=== PATIENT | female | born 1950 | race Caucasian/White ===

== ENCOUNTER 2017-03-25 01:40 | Observation (INO) | payer OTHER ==
[~2017-03-25] VITALS: Ht 162.6 cm; Wt 88.0 kg
[2017-03-25] MEDS ORDERED: IPRATROPIUM BROM 0.5 MG/2.5ML INH SOL NEB ONE (03:00)
[2017-03-25] MEDS ORDERED: ALBUTEROL SULF 2.5 MG/0.5ML(0.5%) NEB SOLN NEB ONE (03:00)
[2017-03-25 03:23] LABS: Basophils # (auto) 0 uL; Eosinophils # (auto) 0 uL; Lymphocytes # (auto) 0.7 uL; Lymphocytes % (auto) 17.2 % (10.0-50.0); Monocytes # (auto) 0.5 uL; White Blood Cell 3.9 10^3/uL (4.4-10.8)
[2017-03-25 03:25] LABS: Basophils % (auto) 0.9 % (0.0-2.0); Eosinophils % (auto) 0.2 % (0.0-7.0); Hematocrit 29.3 % (36.0-46.0); Hemoglobin 9.9 g/dL (12.2-16.2); Mean Corpuscular Hemoglobin 32.3 pg (28.0-32.0); Mean Corpuscular Hgb Conc. 33.6 g/dL (32.0-36.0); Mean Corpuscular Volume 96.1 fL (80.0-100.0); Monocytes % (auto) 13.4 % (0.0-12.0); Neutrophils # (auto) 2.7 uL; Neutrophils % (auto) 68.3 % (37.0-80.0); Nucleated Red Blood Cells % 0.1 %; Red Blood Cells 3.05 10^6/uL (4.0-5.20)
[2017-03-25 03:26] LABS: Urine Bacteria FEW /hpf (None Seen); Urine Blood 1+ /uL (Negative); Urine Mucus FEW (None Seen); Urine Specific Gravity 1.014 (1.001-1.035); Urine WBC 76 /hpf (0 - 5)
[2017-03-25 03:28] LABS: Red Cell Distribution Width 20.6 % (11.8-14.3)
[2017-03-25 03:37] LABS: INR 1.56 (0.9-1.15); Partial Thromboplastin Time 35.5 sec (22.64-33.71); Prothrombin Time 17.1 sec (9.37-12.3)
[2017-03-25 03:40] LABS: Albumin 2.1 g/dL (3.4-5.0); BUN/Creatinine Ratio 9.8; Calcium 7.5 mg/dL (8.5-10.1); Magnesium 2.2 mg/dL (1.6-2.6)
[2017-03-25 03:43] LABS: Bilirubin, Total 4.6 mg/dL (0.2-1.0); Total Protein 5.6 g/dL (6.4-8.2)
[2017-03-25 03:46] LABS: Potassium 2.7 mmol/L (3.5-5.1)
[2017-03-25] MEDS ORDERED: FER325T PO (03:51)
[2017-03-25] MEDS ORDERED: ERGO1CAP23 PO (03:51)
[2017-03-25] MEDS ORDERED: EPOE20005 IJ (03:51)
[2017-03-25] MEDS ORDERED: SIMV10TA84 PO (03:51)
[2017-03-25 03:52] LABS: Platelet Count (auto) 65 10^3/uL (140-450)
[2017-03-25] MEDS ORDERED: POTASSIUM CHL 20 Meq TABLET PO ONE (04:00)
[2017-03-25] MEDS ORDERED: LACTULOSE 20Gm/30ML SOLN PO ONE ×2 (04:45→05:30)
[2017-03-25] MEDS ORDERED: LEVOFLOXACIN 500 MG TAB PO ONE ×2 (04:45→05:30)
[2017-03-25] MEDS ORDERED: ONDANSETRON HCL 4 MG/2 ML VIAL IV ONE (05:30)
[2017-03-25 08:51] VITALS: BP 107/54
== END 2017-03-25 09:12 | disposition short-term general hospital (02) | DRG 204 ==
LOC: EDBD 01:40 → ER 01:44 → OVERFLOW 03:00 → ER 09:12
PROVIDERS: ADMIT Emergency Medicine; ATTEND Emergency Medicine
DX: R06.02 Shortness of breath (principal); A41.9 Sepsis, unspecified organism; N17.9 Acute kidney failure, unspecified; I50.9 Heart failure, unspecified; K50.90 Crohn's disease, unspecified, without complications; I13.0 Hypertensive heart and chronic kidney disease with heart failure and stage 1 through stage 4 chronic kidney disease, or unspecified chronic kidney disease; E11.22 Type 2 diabetes mellitus with diabetic chronic kidney disease; E83.51 Hypocalcemia; N39.0 Urinary tract infection, site not specified; N18.9 Chronic kidney disease, unspecified; R07.2 Precordial pain; E03.9 Hypothyroidism, unspecified; K72.90 Hepatic failure, unspecified without coma; E87.6 Hypokalemia; F17.200 Nicotine dependence, unspecified, uncomplicated; K74.60 Unspecified cirrhosis of liver; Z82.49 Family history of ischemic heart disease and other diseases of the circulatory system; Z83.3 Family history of diabetes mellitus
CPT/HCPCS: 36415; 71010; 80053; 81001; 82140; 82962; 83605; 83735; 83880; 84443; 84484; 85025; 85379; 85610; 85730; 87040; 93005; 94640; 96374; 99285; G0378; J2405

== ENCOUNTER 2017-05-20 11:24 | Inpatient (IN) | payer OTHER ==
[~2017-05-20] VITALS: Ht 162.6 cm; Wt 88.2 kg
[~2017-05-20 11:24] MED LIST: EPOE20005 IJ; ERGO1CAP23 PO; FER325T PO; SIMV10TA84 PO
[2017-05-20 12:18] LABS: Platelet Count (auto) 48 10^3/uL (140-450)
[2017-05-20 12:20] LABS: Hematocrit 25.3 % (36.0-46.0); Hemoglobin 8.2 g/dL (12.2-16.2); Mean Corpuscular Hemoglobin 33.5 pg (28.0-32.0); Mean Corpuscular Hgb Conc. 32.7 g/dL (32.0-36.0); Mean Corpuscular Volume 102.6 fL (80.0-100.0); Red Blood Cells 2.46 10^6/uL (4.0-5.20); Red Cell Distribution Width 18.8 % (11.8-14.3); White Blood Cell 2.4 10^3/uL (4.4-10.8)
[2017-05-20 12:31] LABS: Band Neutrophils % (manual) 0; Basophils % (manual) 0 (0.0-2.0); Blast Cells 0; Eosinophils % (manual) 0 (0-7); Metamyelocytes % 0; Myelocytes % 0; Promyelocytes % 0; Reactive Lymphocytes 0
[2017-05-20] MEDS ORDERED: LORazepam 2MG/ML-1ML VIAL ONE (12:40)
[2017-05-20 12:43] LABS: Alanine Aminotransferase 27 U/L (13-56); Albumin 2.8 g/dL (3.4-5.0); Anion Gap 10 (5-15); Aspartate Aminotransferase 36 U/L (15-37); BUN/Creatinine Ratio 6.9; Blood Alcohol < 3.0 mg/dL (0-5); Blood Urea Nitrogen 45 mg/dL (7-18); Calcium 8.6 mg/dL (8.5-10.1); Carbon Dioxide 24 mmol/L (21-32); Chloride 108 mmol/L (98-107); GFR African American 8 mL/min; GFR Non-African American 7 mL/min; Glucose 98 mg/dL (74-106); Magnesium 2.7 mg/dL (1.6-2.6); Potassium 3.6 mmol/L (3.5-5.1); Sodium 142 mmol/L (136-145)
[2017-05-20] MEDS ORDERED: LORazepam 2MG/ML-1ML VIAL IV ONE (12:45)
[2017-05-20 12:49] LABS: Alkaline Phosphatase 115 U/L (45-117); Bilirubin, Total 3.1 mg/dL (0.2-1.0); Total Protein 5.7 g/dL (6.4-8.2)
[2017-05-20 12:52] LABS: Urine Bacteria FEW /hpf (None Seen); Urine Blood TRACE /uL (Negative); Urine Hyaline Cast FEW /lpf (0 - 2); Urine Specific Gravity 1.011 (1.001-1.035); Urine WBC 8 /hpf (0 - 5)
[2017-05-20 13:05] LABS: Alcohol, Urine < 3.0 mg/dL (0-5); Amphetamine Screen, Urine NEGATIVE (NEGATIVE); Barbiturate Scree,Urine NEGATIVE (NEGATIVE); Benzodiazephine Screen, Urine NEGATIVE (NEGATIVE); Cannabinoid Screen, Urine NEGATIVE (NEGATIVE); Cocaine Screen, Urine NEGATIVE (NEGATIVE); Opiate Scree,Urine NEGATIVE (NEGATIVE); Phencyclidine Screen, Urine NEGATIVE (NEGATIVE)
[2017-05-20 13:12] LABS: Lymphocytes % (manual) 18 (10.0-50.0); Monocytes % (manual) 12 (0-12)
[2017-05-20] MEDS ORDERED: SODIUM CHLORIDE 0.9% 3,000 ML IV ONE (14:00)
[2017-05-20] MEDS ORDERED: VANCOMYCIN PER PHARMACY 0 MG IV SCH (14:15)
[2017-05-20] MEDS ORDERED: DEXTROSE (50%) 50ML SYRG IV PRN (14:15)
[2017-05-20] MEDS ORDERED: cefTRIAXone 1GM/10ml IVPUSH 10 ML IV ONE (14:15)
[2017-05-20] MEDS ORDERED: PANTOPRAZOLE 40 MG/10 ML VIAL IV ONE (14:15)
[2017-05-20] MEDS ORDERED: NITROGLYCERIN 0.4 MG SL TAB SL PRN (14:15)
[2017-05-20] MEDS ORDERED: MORPHINE SULFATE 4 MG/ML SYR/VIAL IV PRN ×2 (14:15)
[2017-05-20] MEDS ORDERED: ONDANSETRON HCL 4 MG/2 ML VIAL IV PRN (14:15)
[2017-05-20] MEDS ORDERED: FAMOTIDINE (10MG/ML) 2ML VL IV ONE (14:15)
[2017-05-20] MEDS ORDERED: NOREPINEPHRINE 8 MG/250ML KIT 250 ML IV SCH (14:15)
[2017-05-20] MEDS: SODIUM CHLORIDE 0.9% 1,000 ML IV SCH (14:48)
[2017-05-20] MEDS ORDERED: VANCOMYCIN 1GM/250ML 250 ML IV ONE (15:00)
[2017-05-20 15:05] LABS: INR 1.37 (0.9-1.15)
[2017-05-20] MEDS: InsuLIN REG 1unit/0.01ml Soln (100units/ml) SC SCH (18:00)
[2017-05-20] MEDS: ACCU-CHEK COMFORT CURVE STRIP VI SCH (18:13)
[2017-05-20] MEDS: LACTULOSE 20Gm/30ML SOLN PR SCH (21:20)
[2017-05-21] MEDS: ACCU-CHEK COMFORT CURVE STRIP VI SCH ×4 (00:08→18:41)
[2017-05-21] MEDS: LACTULOSE 20Gm/30ML SOLN PR SCH ×4 (02:35→18:00)
[2017-05-21 06:10] LABS: Basophils # (auto) 0 uL; Eosinophils # (auto) 0 uL; Mean Corpuscular Hemoglobin 33.3 pg (28.0-32.0); Monocytes # (auto) 0.3 uL; Neutrophils # (auto) 1.8 uL; White Blood Cell 2.3 10^3/uL (4.4-10.8)
[2017-05-21 06:12] LABS: Basophils % (auto) 0.8 % (0.0-2.0); Hemoglobin 8.1 g/dL (12.2-16.2); Lymphocytes # (auto) 0.2 uL; Lymphocytes % (auto) 10.6 % (10.0-50.0); Mean Corpuscular Hgb Conc. 32.2 g/dL (32.0-36.0); Mean Corpuscular Volume 103.3 fL (80.0-100.0); Monocytes % (auto) 11.4 % (0.0-12.0); Neutrophils % (auto) 77.2 % (37.0-80.0); Nucleated Red Blood Cells % 0.4 %; Platelet Count (auto) 39 10^3/uL (140-450); Red Blood Cells 2.42 10^6/uL (4.0-5.20); Red Cell Distribution Width 18.7 % (11.8-14.3)
[2017-05-21 06:29] LABS: Albumin 2.5 g/dL (3.4-5.0); BUN/Creatinine Ratio 6.7; Calcium 8.5 mg/dL (8.5-10.1); Potassium 3.5 mmol/L (3.5-5.1)
[2017-05-21 06:32] LABS: Bilirubin, Total 3.2 mg/dL (0.2-1.0); Total Protein 5.3 g/dL (6.4-8.2)
[2017-05-21] MEDS: InsuLIN REG 1unit/0.01ml Soln (100units/ml) SC SCH ×4 (06:34→18:00)
[2017-05-21] MEDS: SODIUM CHLORIDE 0.9% 1,000 ML IV SCH (06:50)
[2017-05-21 08:50] VITALS: BP 117/62
[2017-05-21] MEDS ORDERED: VANCOMYCIN 1GM/250ML 250 ML IV ONE (10:00)
[2017-05-21] MEDS: cefTRIAXone 1GM/10ml IVPUSH 10 ML IV SCH (10:30)
[2017-05-21] MEDS: FAMOTIDINE (10MG/ML) 2ML VL IV SCH (10:30)
[2017-05-21] MEDS: PANTOPRAZOLE 40 MG/10 ML VIAL IV SCH (10:31)
[2017-05-21] MEDS: ENOXAPARIN SOD 30 MG/0.3 ML SYRINGE SC SCH (10:31)
[2017-05-21] MEDS: D5W/SOD CHLO 0.9% 1,000 ML IV SCH (13:40)
[2017-05-21] MEDS ORDERED: EPOETIN ALFA 10,000 UNIT/1 ML VIAL IV PRN (15:30)
[2017-05-21 17:25] VITALS: BP 132/51
[2017-05-21 20:00] VITALS: BP 126/44
[2017-05-22] VITALS (11 sets, daily range): BP systolic 95–129; BP diastolic 41–57
[2017-05-22] MEDS: LACTULOSE 20Gm/30ML SOLN PR SCH ×3 (00:21→06:00)
[2017-05-22] MEDS: ACCU-CHEK COMFORT CURVE STRIP VI SCH ×4 (00:22→17:33)
[2017-05-22] MEDS: D5W/SOD CHLO 0.9% 1,000 ML IV SCH ×2 (04:40→17:33)
[2017-05-22 05:53] LABS: Basophils # (auto) 0 uL; Eosinophils # (auto) 0 uL; Lymphocytes # (auto) 0.3 uL; Monocytes # (auto) 0.3 uL; Neutrophils # (auto) 1.6 uL; Nucleated Red Blood Cells % 0.5 %
[2017-05-22] MEDS: InsuLIN REG 1unit/0.01ml Soln (100units/ml) SC SCH ×4 (06:00→19:08)
[2017-05-22 06:02] LABS: Basophils % (auto) 0.8 % (0.0-2.0); Eosinophils % (auto) 0.2 % (0.0-7.0); Hematocrit 21.3 % (36.0-46.0); Lymphocytes % (auto) 14.3 % (10.0-50.0); Mean Corpuscular Hemoglobin 33.5 pg (28.0-32.0); Mean Corpuscular Hgb Conc. 32.8 g/dL (32.0-36.0); Mean Corpuscular Volume 102.1 fL (80.0-100.0); Monocytes % (auto) 12.9 % (0.0-12.0); Neutrophils % (auto) 71.8 % (37.0-80.0); Platelet Count (auto) 31 10^3/uL (140-450); Red Blood Cells 2.09 10^6/uL (4.0-5.20); Red Cell Distribution Width 18.7 % (11.8-14.3); White Blood Cell 2.2 10^3/uL (4.4-10.8)
[2017-05-22 06:16] LABS: Potassium 3.3 mmol/L (3.5-5.1)
[2017-05-22 06:21] LABS: Albumin 2.4 g/dL (3.4-5.0); BUN/Creatinine Ratio 5.8; Calcium 8.4 mg/dL (8.5-10.1)
[2017-05-22 06:29] LABS: Bilirubin, Total 3.3 mg/dL (0.2-1.0); Total Protein 5.1 g/dL (6.4-8.2)
[2017-05-22] MEDS ORDERED: POTASSIUM CHL 10% (20 MEQ/15ML) 15ml ORAL SOLN PO ONE (07:45)
[2017-05-22] MEDS: ENOXAPARIN SOD 30 MG/0.3 ML SYRINGE SC SCH (10:00)
[2017-05-22] MEDS: PANTOPRAZOLE 40 MG/10 ML VIAL IV SCH (10:58)
[2017-05-22] MEDS: cefTRIAXone 1GM/10ml IVPUSH 10 ML IV SCH (10:58)
[2017-05-22] MEDS: FAMOTIDINE (10MG/ML) 2ML VL IV SCH (10:58)
[2017-05-22] MEDS ORDERED: VANCOMYCIN 1GM/250ML 250 ML IV ONE (12:00)
[2017-05-22] MEDS: LACTULOSE 20Gm/30ML SOLN PO SCH (21:05)
[2017-05-23] MEDS: InsuLIN REG 1unit/0.01ml Soln (100units/ml) SC SCH ×3 (00:27→11:59)
[2017-05-23] MEDS: ACCU-CHEK COMFORT CURVE STRIP VI SCH ×3 (00:27→11:59)
[2017-05-23 03:54] VITALS: BP 101/45
[2017-05-23 05:47] LABS: Basophils # (auto) 0 uL; Eosinophils # (auto) 0 uL; Hemoglobin 7.9 g/dL (12.2-16.2); Lymphocytes # (auto) 0.3 uL; Mean Corpuscular Hemoglobin 33.4 pg (28.0-32.0); Monocytes # (auto) 0.4 uL; Red Cell Distribution Width 18.8 % (11.8-14.3)
[2017-05-23 05:51] LABS: Basophils % (auto) 0.6 % (0.0-2.0); Hematocrit 23.9 % (36.0-46.0); Lymphocytes % (auto) 11.6 % (10.0-50.0); Mean Corpuscular Hgb Conc. 33.1 g/dL (32.0-36.0); Mean Corpuscular Volume 100.8 fL (80.0-100.0); Monocytes % (auto) 15.4 % (0.0-12.0); Neutrophils # (auto) 1.8 uL; Neutrophils % (auto) 72.4 % (37.0-80.0); Nucleated Red Blood Cells % 0.1 %; Platelet Count (auto) 26 10^3/uL (140-450); Red Blood Cells 2.37 10^6/uL (4.0-5.20); White Blood Cell 2.5 10^3/uL (4.4-10.8)
[2017-05-23 06:13] LABS: Potassium 3.2 mmol/L (3.5-5.1)
[2017-05-23 06:16] LABS: Albumin 2.3 g/dL (3.4-5.0); Calcium 8.1 mg/dL (8.5-10.1)
[2017-05-23 06:50] LABS: BUN/Creatinine Ratio 5.6; Bilirubin, Total 2.8 mg/dL (0.2-1.0)
[2017-05-23] MEDS ORDERED: EPOETIN ALFA 10,000 UNIT/1 ML VIAL IV ONE (07:00)
[2017-05-23] MEDS ORDERED: SODIUM CHL 0.9% 1000 ML BAG XX ONE (07:00)
[2017-05-23] MEDS: D5W/SOD CHLO 0.9% 1,000 ML IV SCH (07:45)
[2017-05-23 08:00] VITALS: BP 107/47
[2017-05-23] MEDS: ALBUMIN 25% 100 ML IV SCH (09:00)
[2017-05-23] MEDS: cefTRIAXone 1GM/10ml IVPUSH 10 ML IV SCH (09:00)
[2017-05-23] MEDS: FAMOTIDINE (10MG/ML) 2ML VL IV SCH (10:00)
[2017-05-23] MEDS ORDERED: LACTULOSE 20Gm/30ML SOLN PO ONE (11:00)
[2017-05-23] MEDS: ENOXAPARIN SOD 30 MG/0.3 ML SYRINGE SC SCH (11:26)
[2017-05-23] MEDS: LACTULOSE 20Gm/30ML SOLN PO SCH (11:27)
[2017-05-23] MEDS: PANTOPRAZOLE 40 MG/10 ML VIAL IV SCH (11:57)
[2017-05-23 12:00] VITALS: BP 120/57
[2017-05-23] MEDS ORDERED: CALC667C5 PO (13:57)
[2017-05-23] MEDS ORDERED: RANI-185 PO (13:57)
[2017-05-23 13:58] VITALS: BP 120/57
[2017-05-23] MEDS ORDERED: VANCOMYCIN 1GM/250ML 250 ML IV ONE (18:00)
== END 2017-05-23 14:45 | disposition home or self-care (01) | DRG 871 ==
LOC: ER 11:24 → EDBD 11:24 → OVERFLOW 11:25 → TELE 23:28 → TELE-WESTW 05-21 09:22 → DOU IN ICU 05-21 17:19
PROVIDERS: ADMIT Internal Medicine; ATTEND Family Medicine
PROC: 5A1D70Z Performance of Urinary Filtration, Intermittent, Less than 6 Hours Per Day (ICD-10-PCS; 2017-05-21)
PROC: 30233N1 Transfusion of Nonautologous Red Blood Cells into Peripheral Vein, Percutaneous Approach (ICD-10-PCS; principal; 2017-05-22)
PROC: 5A1D70Z Performance of Urinary Filtration, Intermittent, Less than 6 Hours Per Day (ICD-10-PCS; 2017-05-23)
DX: A41.9 Sepsis, unspecified organism (principal); G92 Toxic encephalopathy; K72.00 Acute and subacute hepatic failure without coma; R65.21 Severe sepsis with septic shock; D61.818 Other pancytopenia; E44.0 Moderate protein-calorie malnutrition; N17.9 Acute kidney failure, unspecified; N18.6 End stage renal disease; E83.42 Hypomagnesemia; I07.1 Rheumatic tricuspid insufficiency; I13.2 Hypertensive heart and chronic kidney disease with heart failure and with stage 5 chronic kidney disease, or end stage renal disease; N39.0 Urinary tract infection, site not specified; K50.90 Crohn's disease, unspecified, without complications; K76.6 Portal hypertension; R18.8 Other ascites; E86.0 Dehydration; K74.60 Unspecified cirrhosis of liver; K76.0 Fatty (change of) liver, not elsewhere classified; R16.1 Splenomegaly, not elsewhere classified; R74.8 Abnormal levels of other serum enzymes; E80.6 Other disorders of bilirubin metabolism; I50.9 Heart failure, unspecified; E87.6 Hypokalemia; E11.21 Type 2 diabetes mellitus with diabetic nephropathy; E11.22 Type 2 diabetes mellitus with diabetic chronic kidney disease; Z99.2 Dependence on renal dialysis; Z79.4 Long term (current) use of insulin; Z82.49 Family history of ischemic heart disease and other diseases of the circulatory system; Z83.3 Family history of diabetes mellitus; Z79.899 Other long term (current) drug therapy; Z80.8 Family history of malignant neoplasm of other organs or systems; Z68.33 Body mass index [BMI] 33.0-33.9, adult
CPT/HCPCS: 36415; 51702; 70450; 71045; 74176; 80053; 80202; 80307; 80320; 81001; 82140; 82962; 83036; 83605; 83735; 84484; 85007; 85025; 85027; 85610; 86850; 86900; 86901; 86920; 87040; 87045; 87081; 87086; 87493; 87804; 87899; 90935; 93005; 93306; 96361; 96374; 96375; 99291; C9113; J0885; J1815; J2405; J3490; J7042